=== PATIENT | female | born 2000 | race African-American/Black ===

== ENCOUNTER 2022-04-12 05:51 | Emergency (ER) | payer OTHER ==
[~2022-04-12] VITALS: Ht 160 cm; Wt 95.0 kg
[~2022-04-12 05:51] MED LIST: BACTRIM DS1 TAB OR
[2022-04-12 06:00] VITALS: BP 115/76
[2022-04-12] MEDS ORDERED: PERCOCET 5/325M1 TAB PO (06:03)
[2022-04-12 06:24] VITALS: BP 160/81
[2022-04-12 06:27] LABS: HEMATOCRIT 35.6 % (37.0-47.0); HEMOGLOBIN 11.3 g/dl (12.0-16.0); IMMATURE GRANULOCYTES 0.2 % (0.0-5.0); MEAN CELL VOLUME 85.6 fL CALC (80.0-100.0); MEAN CORPUSCULAR HGB 27.2 pG CALC (26.0-32.0); MEAN CORPUSCULAR HGB CONC 31.7 g/dL CAL (32.0-36.0); NEUT# 3.38 thou/uL (2.00-7.15); RED BLOOD COUNT 4.16 mill/uL (4.20-5.60); RED CELL DISTRI WIDTH 13.7 % (11.5-15.5)
[2022-04-12 06:30] VITALS: BP 136/80
[2022-04-12 06:42] LABS: ALBUMIN 3.9 g/dL (3.2-5.0); AMYLASE 72 u/l (30-110); ANION GAP 13 (6-22 (CALC)); BILIRUBIN, TOTAL 0.3 mg/dL (0.0-1.4); BUN 12 mg/dL (7-17); BUN/CREATININE RATIO 15 (12-20 (CALC)); CARBON DIOXIDE 25 mmol/l (22-30); CHLORIDE 106 mmol/l (95-108); CREATININE 0.8 mg/dL (0.5-1.0); GFR FOR AFR.AMER. > 60 ML/MIN (>=60 (CALC)); GFR OTHER RACES > 60 ML/MIN (>=60 (CALC)); LIPASE 310 u/l (23-300); POTASSIUM 3.8 mmol/l (3.5-5.1); SGOT/AST 29 u/l (14-36); SODIUM 140 mmol/l (137-146); TOTAL PROTEIN 7.1 g/dL (6.3-8.2)
[2022-04-12 06:47] VITALS: BP 124/58
[2022-04-12 06:53] LABS: ALKALINE PHOSPHATASE 95 u/l (38-126)
[2022-04-12 08:05] LABS: URINE BILIRUBIN - DIPSTICK NEGATIVE (NEGATIVE); URINE BLOOD DIPSTICK NEGATIVE (NEGATIVE); URINE COLOR YELLOW; URINE GLUCOSE - DIPSTICK NEGATIVE (NEGATIVE); URINE KETONE NEGATIVE (NEGATIVE); URINE LEUK ESTERASE SMALL (NEGATIVE); URINE NITRITE - DIPSTICK NEGATIVE (Negative); URINE PROTEIN - DIPSTICK NEGATIVE (NEG-TRACE); URINE SPECIFIC GRAVITY 1.025
[2022-04-12 08:06] LABS: URINE BACTERIA FEW hpf; URINE SQUAMOUS EPITHELIAL CELL FEW EPI/hpf (0-FEW); URINE WBC 20-50 WBC/hpf (0-5)
[2022-04-12 08:07] LABS: URINE MUCUS FEW hpf (NONE-FEW)
[2022-04-12] MEDS ORDERED: CEPHALEXIN500 M1 PO (08:10)
[2022-04-12 08:16] VITALS: BP 124/58
== END 2022-04-12 08:25 | disposition home or self-care (01) ==
LOC: ED 05:51
PROVIDERS: Emergency Medicine
DX: M54.9 Dorsalgia, unspecified (principal); M54.6 Pain in thoracic spine; N39.0 Urinary tract infection, site not specified; B96.20 Unspecified Escherichia coli [E. coli] as the cause of diseases classified elsewhere
CPT/HCPCS: S0164